=== PATIENT | male | born 1940 | race Caucasian/White ===

== ENCOUNTER → 2017-12-24 12:43 | Outpatient (REF) | payer MEDICARE, SELFPAY ==
[2017-12-25 10:54] LABS: Campylobacter PCR SEE COMMENTS; Salmonella PCR SEE COMMENTS; Shiga Toxin PCR SEE COMMENTS; Shigella/Enteroinvasive Ecoli SEE COMMENTS
== END ==
LOC: NCHCN 12:43
PROVIDERS: PCP Internal Medicine; Visit Provider Internal Medicine
DX: R19.7 Diarrhea, unspecified (principal)
CPT/HCPCS: 87329; 87505; 87177; 87324

== ENCOUNTER 2018-04-30 10:18 | Outpatient (REF) | payer MEDICARE, SELFPAY ==
[2018-04-30 12:59] LABS: Ferritin 133 ng/mL (8-388); Glucose 104 mg/dL (70-100)
== END 2018-04-30 10:38 ==
LOC: NCHCN 10:18
PROVIDERS: PCP Internal Medicine; Visit Provider Internal Medicine
DX: G25.81 Restless legs syndrome (principal); E66.3 Overweight
CPT/HCPCS: 82947; 82728

== ENCOUNTER 2018-08-09 17:47 | Emergency (ER) | payer MEDICARE, SELFPAY ==
[2018-08-09 17:54] VITALS: BP 147/82; PULSE 59; RESP 20; TEMP 36.8; O2SAT 94
--- NOTE | 2018-08-09 18:17 | DI.CT_ITS ---
SYMPTOM/DIAGNOSIS: LT FRONTAL/FOREHEAD LACERATION, ON ELIQUIS CERVICAL SPINE CT: 08/09/[address] examination of the cervical spine was performed. There is a 7 mm in diameter noncalcified left apical lung nodule, no previous chest CT available for comparison. Chest CT recommended for further evaluation. Aortic arch measures about 37 mm in greatest diameter. Thoracic aorta may be evaluated at the time of chest CT as well. No cervical mass or adenopathy seen. Tracheolaryngeal structures appear intact. Marked degenerative changes of the cervical spine noted. No acute fracture or dislocation. CONCLUSION: No acute injury seen. Incidental left lung nodule and ectasia of thoracic aortic arch noted. Chest CT recommended for further evaluation of lung nodule. CRANIAL CT: 08/09/[address] was performed. There is moderate generalized cerebral atrophy. There is no evidence of acute intracranial hemorrhage, mass effect or midline shift. The orbital and temporal bone structures appear intact. The visualized paranasal sinuses and mastoid air cells are clear. CONCLUSION: No evidence of acute intracranial injury
--- NOTE | 2018-08-09 18:45 | ED.GENADUL_ITS ---
Discharge Plan Disposition Patient Disposition: HOME Condition: Stable Discharge Details Chief Complaint: Laceration Clinical Impression: Forehead laceration, Head injury, Chronic anticoagulation Primary Care Provider: Taurus Maza ED Provider: Ronit Edwards Home Meds and New Rx's Prescriptions: Continued atorvastatin 40 MG tablet 40 mg PO DAILY RF: 0 metoprolol succinate 50 MG tablet extended release 24 hr 50 mg PO DAILY RF: 0 ondansetron [Zofran ODT] 4 MG tablet,disintegrating 4 mg PO PRN RF: 0 meclizine 25 MG tablet,chewable 25 mg PO ONCE RF: 0 Eliquis 5 mg Tablet 5 mg PO BID RF: 0 Discharge Instructions Instructions: Laceration (ED), Head Injury (ED), Skin Adhesive Care (ED) Additional Instructions: Do not soak or irrigate wound. Do not cover wound with tape or Band-Aid. Let the glue fall off naturally. Follow-up with your primary care doctor in 2 days for reevaluation. Return immediately to the emergency department with any worsening or new concerning symptoms. Discharge Data Discharge Date/Time-TO BE ENTERED AT DEPARTURE: 08/09/18 20:17 Discharge Physician: Ronit Edwards Medical Decision Making 77-year-old male who presents to the ED for evaluation after trip and fall and striking his head on the corner of the window molding this afternoon. Denies LOC or vomiting. Admits to now mild headache and stiffness of the neck but denies any upper or lower extremity weakness. Tetanus 2014. There is a 2 cm flap laceration noted to the left forehead/frontal region. This is well approximated and without active bleeding. He has no midline C-spine tenderness per patient is on Eliquis for a history of atrial fibrillation. Patient appears nontoxic and comfortable. Will irrigate wound and due to anticoagulation, obtain a CT head and C-spine. 1930 --CT reviewed and negative. Wound irrigated and closed with Dermabond. Pt instructed on wound care with glue. It was discussed that as pt is on eliquis, he is instructed to return immediately with any worsening symptoms of headache, neck pain, persistent vomiting, dizziness or blurry vision. He is instructed to f/u with his pcp for re-evaluation in the next week. Medical Records Medical records reviewed: Yes I reviewed the patient's medical records. Imaging Data Radiologic Study: Radiologist's impression: CT Head Without Contrast EXAM DATE/TIME: 08/09/2018 6:18 PM CLINICAL HISTORY: 77 years old, male; Injury or trauma; Fall; Initial encounter; Laceration; Without residual foreign body; Forehead; Blunt trauma TECHNIQUE: Imaging protocol: Axial computed tomography images of the head/brain without contrast. Coronal and sagittal reformatted images were created and reviewed. COMPARISON: MRI - BRAIN WO CONTRAST 05/24/2016 2:58 PM FINDINGS: Brain: There is brain parenchymal atrophy. Ventricles: Normal. No ventriculomegaly. Bones/joints: Unremarkable. No acute fracture. Sinuses: Visualized sinuses are unremarkable. No acute sinusitis. Mastoid air cells: Visualized mastoid air cells are unremarkable. No mastoid effusion. Soft tissues: Unremarkable. IMPRESSION: No intracranial hemorrhage or skull fracture. CT Cervical Spine Without Contrast EXAM DATE/TIME: 08/09/2018 6:18 PM CLINICAL HISTORY: 77 years old, male; Injury or trauma; Fall; Initial encounter; Laceration; Without residual foreign body; Forehead; Blunt trauma TECHNIQUE: Imaging protocol: Axial computed tomography images of the cervical spine without intravenous contrast. Coronal and sagittal reformatted images were created and reviewed. COMPARISON: MRI - BRAIN WO CONTRAST 05/24/2016 2:58 PM FINDINGS: Vertebrae: Grade 2 anterolisthesis of C3 on C4. Reversal of cervical lordosis. Diffuse facet arthrosis. Degenerative changes and atlantoaxial joint. No acute compression fracture. Discs/Spinal canal/Neural foramina: Diffuse degenerative disc disease, most prominent at C4-C7 levels. Disc osteophyte complexes at C4-5, C5-6, C6-7 with bilateral neural foraminal stenosis at these levels. Mild spinal canal stenosis at C4-5. Soft tissues: Unremarkable. Lungs: Lung apices are normal. IMPRESSION: Degenerative changes. No acute finding. HPI General Mode of arrival: ambulatory . Date/Time Provider Initiated Documentation: 08/09/18 18:03 . Limitations to Documentation: no limitations . Information obtained by: patient . HPI Narrative: Pt is a 77yo M who presents to the ED w/ a c/o head injury at home [employer]. Pt states he was wearing bulky boots while walking at home when he tripped and hit his forehead on the corner of the window molding sustaining a laceration to the top of his head. He denies LOC, vomiting, arm or leg weakness or pain. He denied an initial headache but now admits to a mild diffuse headache. Pt also denied initial neck pain but now admits to mild b/l neck stiffness. Unsure of his tetanus status. Related Data Home Medications Medication Instructions Recorded Confirmed atorvastatin 40 mg PO DAILY tab-cap 08/08/16 08/09/18 meclizine 25 mg PO ONCE tab-cap 08/08/16 08/09/18 metoprolol succinate 50 mg PO DAILY tab-cap 08/08/16 08/09/18 ondansetron [Zofran ODT] 4 mg PO PRN tab-cap 08/08/16 08/09/18 Eliquis 5 mg PO BID 08/09/18 08/09/18 Allergies Allergy/AdvReac Type Severity Reaction Status Date / Time No Known Allergies Allergy Unverified 08/09/18 18:00 General Stated Complaint: Laceration GRACIELA: 3 Review of Systems Review of Systems All systems reviewed & are unremarkable except as noted in HPI and below Constitutional Reports as per HPI, Denies chills and Denies fever(s) Eyes Denies blurry vision ENT Denies dizziness, Denies sore throat and Denies throat swelling Cardiovascular Denies chest pain and Denies dyspnea Respiratory Denies cough and Denies dyspnea Gastrointestinal Denies abdominal pain, Denies diarrhea and Denies vomiting Genitourinary Denies hematuria and Denies dysuria Musculoskeletal Denies back pain and Denies numbness Integumentary/Breasts Denies lesions and Denies rash Neurologic Denies dizziness, Denies focal weakness and Denies numbness Allergic/Immunologic Denies throat swelling PFSH Medical History Atrial fibrillation (Chronic) GERD (gastroesophageal reflux disease) (Chronic) Myocardial infarct (Chronic) Obstructive sleep apnea (Chronic) Surgical History History of repair of ACL (Acute) History of tonsillectomy (Chronic) Hx of cardiac catheterization (Chronic) Hx of hernia repair (Chronic) Social History Smoking/Tobacco Use Status: Never Alcohol Intake: never Drug use: Never Substance use type: does not use Do you feel safe at home: Yes Do you feel safe in your relationship?: Yes Exam Const General: cooperative and healthy appearing Orientation: alert and awake [facility] Head images: 1. 2cm c shaped flap laceration. No active bleeding. 2. 2cm superficial linear laceration/skin avulsion extending from flap laceration. Ears: hearing grossly normal bilaterally, external ears normal and TM's normal bilaterally General nose exam: external nose normal Face and sinus: normal facial exam Mouth: oral mucosae normal Teeth and gingiva: dentition normal Throat: posterior oropharynx normal Eyes General: appearance normal, both eyes and all related structures Eyelids: eyelids normal Pupils: PERRL EOM: EOM intact bilaterally Neck Neck: normal visual inspection Lymphatic: no lymphadenopathy noted Chest Chest: normal inspection of the chest Resp Effort & Inspection: normal respiratory effort and able to speak in complete sentences Auscultation: clear to auscultation bilaterally Cardio Rate: regular rate Rhythm: regular rhythm GI Inspection: normal to inspection Back/Spine/Pelvis Cervical Spine: No cervical muscular tenderness and No cervical spinal tenderness Skin General skin exam: no rashes or lesions noted Neuro General: alert, awake, oriented x3, gait normal, moves all extremities, no meningeal signs and no focal motor deficits Cranial Nerves: CN's II-XI intact bilaterally Cognition: normal cognition Speech: speech normal Gait: normal gait Motor: muscle tone normal throughout and strength 5/5 throughout Sensory Exam: no sensory deficits noted Extrem General: normal to inspection, full ROM and normal capillary refill Psych Appearance: grossly normal Mental Status: mental status grossly normal Speech and Movement: speech and movement normal Affect: normal affect Thought Process: normal Course Vital Signs Temperature 98.2 F 08/09/18 17:54 Pulse 59 L 08/09/18 17:54 Respiratory Rate 20 08/09/18 17:54 Blood Pressure 147/82 H 08/09/18 17:54 Pulse Oximetry 94 L 08/09/18 17:54 Temperature 98.2 F 08/09/18 17:54 Temperature Source Temporal Artery Scan 08/09/18 17:54 Pulse 59 L 08/09/18 17:54 Respiratory Rate 20 08/09/18 17:54 Respiratory Effort Non-Labored 08/09/18 17:54 Blood Pressure 147/82 H 08/09/18 17:54 Blood Pressure Position Sitting 08/09/18 17:54 Pulse Oximetry 94 L 08/09/18 17:54 Oxygen Delivery Method Room Air 08/09/18 17:54 Oxygen Flow Rate 0 08/09/18 17:54 Pain Level 4 08/09/18 17:54
--- NOTE | 2018-08-09 19:34 | DI.VRAD_ITS ---
EXAM: CT Head Without Contrast EXAM DATE/TIME: 08/09/2018 6:18 PM CLINICAL HISTORY: 77 years old, male; Injury or trauma; Fall; Initial encounter; Laceration; Without residual foreign body; Forehead; Blunt trauma TECHNIQUE: Imaging protocol: Axial computed tomography images of the head/brain without contrast. Coronal and sagittal reformatted images were created and reviewed. COMPARISON: MRI - BRAIN WO CONTRAST 05/24/2016 2:58 PM FINDINGS: Brain: There is brain parenchymal atrophy. Ventricles: Normal. No ventriculomegaly. Bones/joints: Unremarkable. No acute fracture. Sinuses: Visualized sinuses are unremarkable. No acute sinusitis. Mastoid air cells: Visualized mastoid air cells are unremarkable. No mastoid effusion. Soft tissues: Unremarkable. IMPRESSION: No intracranial hemorrhage or skull fracture. EXAM: CT Cervical Spine Without Contrast EXAM DATE/TIME: 08/09/2018 6:18 PM CLINICAL HISTORY: 77 years old, male; Injury or trauma; Fall; Initial encounter; Laceration; Without residual foreign body; Forehead; Blunt trauma TECHNIQUE: Imaging protocol: Axial computed tomography images of the cervical spine without intravenous contrast. Coronal and sagittal reformatted images were created and reviewed. COMPARISON: MRI - BRAIN WO CONTRAST 05/24/2016 2:58 PM FINDINGS: Vertebrae: Grade 2 anterolisthesis of C3 on C4. Reversal of cervical lordosis. Diffuse facet arthrosis. Degenerative changes and atlantoaxial joint. No acute compression fracture. Discs/Spinal canal/Neural foramina: Diffuse degenerative disc disease, most prominent at C4-C7 levels. Disc osteophyte complexes at C4-5, C5-6, C6-7 with bilateral neural foraminal stenosis at these levels. Mild spinal canal stenosis at C4-5. Soft tissues: Unremarkable. Lungs: Lung apices are normal. IMPRESSION: Degenerative changes. No acute finding. Dictated and Authenticated by: Bernadette Miller MD. Ordering:ELISABETH Cottrell MD
[2018-08-09 20:16] VITALS: BP 141/81; PULSE 62; RESP 20; TEMP 36.8; O2SAT 95
== END 2018-08-09 20:17 | disposition home or self-care (01) ==
PROVIDERS: Emergency Provider Physician Assistant; PCP Internal Medicine
DX: S01.01XA Laceration without foreign body of scalp, initial encounter (principal); W01.190A Fall on same level from slipping, tripping and stumbling with subsequent striking against furniture, initial encounter; Z79.01 Long term (current) use of anticoagulants
CPT/HCPCS: 12002; 99284; 70450; 72125; L0172

== ENCOUNTER 2018-10-27 10:53 | Outpatient (REF) | payer MEDICARE, SELFPAY ==
[2018-10-27 12:43] LABS: Anion Gap 11.8 mmol/L (3-11); BUN 23 mg/dL (7-18); CO2 23.2 mmol/L (21.0-32.0); CREATININE 0.94 mg/dL (0.70-1.30); Calcium 9.1 mg/dL (8.5-10.1); Chloride 107 mmol/L (98-107); Glucose 98 mg/dL (70-100); Potassium 4.3 mmol/L (3.5-5.1); Sodium 142 mmol/L (136-145)
== END 2018-10-27 11:13 ==
LOC: NCHCN 10:53
PROVIDERS: PCP Internal Medicine; Visit Provider Internal Medicine
DX: I48.0 Paroxysmal atrial fibrillation (principal); I25.10 Atherosclerotic heart disease of native coronary artery without angina pectoris; R39.9 Unspecified symptoms and signs involving the genitourinary system; R91.8 Other nonspecific abnormal finding of lung field; G47.33 Obstructive sleep apnea (adult) (pediatric); M25.562 Pain in left knee
CPT/HCPCS: 80048

== ENCOUNTER 2019-01-07 12:35 | Outpatient (CLI) | payer MEDICARE, SELFPAY ==
--- NOTE | 2019-01-07 12:33 | DI.RAD_ITS ---
SYMPTOM/DIAGNOSIS: LT KNEE PAIN, H/O ACL RECONSTRUCTIONS LEFT KNEE: Three views were obtained. There is marked narrowing of the medial tibiofemoral cartilaginous joint space. There is some flattening of the medial tibial articular surface. Very prominent hypertrophic marginal osteophytes are noted involving all the joints of the knee. There are small, probable loose joint bodies projected posteriorly overlying the lateral tibiofemoral joint. 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
== END 2019-01-07 12:55 ==
PROVIDERS: PCP Internal Medicine; Referring Provider Internal Medicine; Visit Provider Student in an Organized Health Care Education/Training Program
DX: M25.562 Pain in left knee (principal); M17.32 Unilateral post-traumatic osteoarthritis, left knee; Z98.890 Other specified postprocedural states; M23.42 Loose body in knee, left knee
CPT/HCPCS: 20610; 73562; 99203; 99214; J1040

== ENCOUNTER 2019-05-04 09:36 | Outpatient (REF) | payer MEDICARE, SELFPAY ==
[2019-05-04 12:54] LABS: CREATININE 0.95 mg/dL (0.70-1.30); Glucose 105 mg/dL (74-106)
[2019-05-05 13:08] LABS: PSA, Screening 0.7 ng/mL (0.0-6.5)
== END 2019-05-04 09:56 ==
LOC: NCHCN 09:36
PROVIDERS: PCP Internal Medicine; Visit Provider Internal Medicine
DX: I48.0 Paroxysmal atrial fibrillation (principal); I25.10 Atherosclerotic heart disease of native coronary artery without angina pectoris; R73.09 Other abnormal glucose; R39.9 Unspecified symptoms and signs involving the genitourinary system; Z12.5 Encounter for screening for malignant neoplasm of prostate
CPT/HCPCS: 82947; 84153; 82565; 83036

== ENCOUNTER 2019-05-05 02:14 | Outpatient (CLI) | payer MEDICARE, SELFPAY ==
[2019-05-05] MEDS: Omnipaque 350 MG/ML 100 ML BTL 70 ML IJ (14:51)
--- NOTE | 2019-05-05 14:53 | DI.CT_ITS ---
EXAM: CT CHEST W CLINICAL HISTORY: LUNG NODULE, R91.8 TECHNIQUE: Post IV contrast. COMPARISON: CT HEAD CERVICAL SPINE WO from 08/09/2018 FINDINGS: There has been no change in size or appearance of the nodule at the medial left lung apex, measuring 7 millimeters in diameter. No additional nodules are identified. There is respiratory motion and mi ld atelectasis or scarring at the lung bases. No infiltrates, pleural or pericardial effusions are s een. There is no adenopathy. The aorta is tortuous. There is mild coronary artery calcification. Th ere is mild left atrial enlargement. Liver, spleen, gallbladder, pancreas and adrenals appear normal . There are bilateral renal cysts. A nonobstructing stone is seen in the upper pole of the right ki dney. Degenerative changes are seen in the spine. IMPRESSION: Stable 7 millimeter nodule at the left lung apex. Further follow-up could be considered in 6 months.
== END 2019-05-05 02:34 ==
PROVIDERS: PCP Internal Medicine; Visit Provider Internal Medicine
DX: R91.8 Other nonspecific abnormal finding of lung field (principal); J98.4 Other disorders of lung
CPT/HCPCS: 71260; J3490

== ENCOUNTER 2019-09-01 09:59 | Outpatient (REF) | payer MEDICARE, SELFPAY ==
[2019-09-01 21:14] LABS: Calculated LDL 68 mg/dL (<100); Cholesterol 133 mg/dL (<200); Glucose 88 mg/dL (74-106); HDL Cholesterol 57 mg/dL (40-60); Triglyceride 43 mg/dL (<150)
[2019-09-01 21:38] LABS: Hemoglobin A1C 5.8 % (3.8-5.6)
== END 2019-09-01 10:19 ==
LOC: NCHCN 09:59
PROVIDERS: PCP Internal Medicine; Visit Provider Internal Medicine
DX: R73.03 Prediabetes (principal); E66.3 Overweight
CPT/HCPCS: 80061; 82947; 83036

== ENCOUNTER 2019-09-28 18:54 | Emergency (ER) | payer MEDICARE, SELFPAY ==
[2019-09-28] VITALS (34 sets, daily range): BP systolic 104–132; BP diastolic 60–79; PULSE 50–61; RESP 10–23; TEMP 36.7–36.8; O2SAT 93–98
--- NOTE | 2019-09-28 19:02 | W.ED.GENAD ---
Discharge Plan Disposition Patient Disposition: HOME Condition: Stable Discharge Details Chief Complaint: Chest Pain Clinical Impression: Fatigue Primary Care Provider: Taurus Maza ED Provider: Jonatan Mena Home Meds and New Rx's Prescriptions: Continued atorvastatin 40 MG tablet 40 mg PO DAILY RF: 0 metoprolol succinate 50 MG tablet extended release 24 hr 50 mg PO DAILY RF: 0 ondansetron [Zofran ODT] 4 MG tablet,disintegrating 4 mg PO PRN RF: 0 meclizine 25 MG tablet,chewable 25 mg PO ONCE RF: 0 Eliquis 5 mg Tablet 5 mg PO BID RF: 0 aspirin 81 mg Tablet,Chewable 81 mg PO HS RF: 0 Discharge Instructions Instructions: Fatigue (ED) Additional Instructions: At this time your work-up does not reveal any emergent process. Please watch for new or worsening symptoms and return immediately to the ER. I do recommend that you reach out to your primary care provider tomorrow for prompt outpatient reevaluation. You are being set up for an outpatient stress test, they should be in contact with you tomorrow to set up a time and date. Discharge Data Discharge Date/Time-TO BE ENTERED AT DEPARTURE: 09/28/19 23:10 Medical Decision Making <ANTONINO Vallejo - Last Filed: 09/29/19 12:11> Patient is a pleasant 70-year-old gentleman presents today with chief complaint of fatigue. He reports this is recently diagnosed with an angina equivalent. He is concerned that he may be having an [place]. Patient reports that he was quite busy yesterday, spent majority of the day outside mowing and working on his horses. He reports that yesterday he was feeling at his baseline. He was not endorsing any chest pain. States that he has chronic exertional shortness of breath but this is unchanged recently. 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 He states that his symptom at that time was heartburn. He denies any symptoms like this recently. States that he awoke around 5:00 this morning and since that time is been having fatigue. He does report that intermittently he can have lightheadedness. He states that he did have this this morning when he stood up. Has not had any since then. Denies any neck pain, back pain, jaw pain, arm pain. No nausea or vomiting. He has not had any palpitations. Patient does have history of atrial fibrillation and has been taking his Eliquis as prescribed. On exam, the patient appears to be resting comfortably. He appears nontoxic. Patient's slightly bradycardic with a heart rate of 59, patient is on metoprolol and did take this today. Normal cardiac exam. Lungs are clear. Normal abdominal exam. No lower extremity edema or calf tenderness noted. EKG was reviewed by Dr. Moran. Patient's been sinus bradycardia with a rate of 59. He does have a first-degree AV block which is unchanged from previous ECG. RSR prime is again noted but again remains unchanged from previous. No acute ischemic changes. Initial labs reviewed. Normal CBC. CMP is significant for a BUN of 38, this is elevated compared to the patient's baseline. His troponin is less than 0.05. Patient did appear slightly dehydrated on exam. With his story of being quite busy outside yesterday and not having any symptoms at that time, his story is more concerning and consistent for dehydration rather than acute coronary syndrome throat. With the patient's history, I do feel that repeat troponin would be appropriate, 3-hour will be obtained. I did advise that if this is negative an outpatient stress test would be appropriate. We will hydrate the patient continue to monitor. UA shows a specific gravity over 1.03. Enema shift, care was transitioned to Mark Mena PA-C with repeat ECG and troponin pending. At this point, patient's history is most consistent for dehydration and overactivity yesterday. However, as the patient does have exertional dyspnea and history of ACS, I do feel that outpatient stress test would be appropriate if repeat laboratory evaluation is negative. <ANTONINO Quiroz - Last Filed: 09/28/19 22:58> I assumed care of this 78-year-old gentleman pending repeat troponin and EKG. He was concerned that he was experiencing angina, described as generalized weakness and fatigue. He does have a history of atrial fibrillation, [place], cardiac catheterization. Patient never had any chest pain whatsoever. Extensive work-up has already been initiated and thus far has been negative. Assuming negative troponin and EKG at the 3-hour corina, he has already been set up for an outpatient stress test and they will be contacting him tomorrow. Patient is resting in room 4 comfortably. He reports that he is currently asymptomatic. He appears well, nontoxic. Head normocephalic, moist mucous membranes. Heart bradycardia, rate of 56. Lungs clear to auscultation. Abdomen is soft, nontender. Lower extremities without pedal edema. Apparently patient very active yesterday and through his exertion felt well, was asymptomatic. BUN was elevated, does bring up the question of dehydration-depletion Repeat troponin is less than 0.05. Repeat EKG performed 2208, sinus bradycardia, first-degree AV block. Ventricular rate of 51. No STEMI. Reviewed and interpreted Dr. Story. Discussed work-up with patient. Discussed plan for outpatient stress test. Patient remains asymptomatic and is comfortable discharge. He was encouraged to return to the ER for new or evolving symptoms. He will also reach out to his primary care provider for prompt outpatient reevaluation. Medical Records Medical records reviewed: Yes I reviewed the patient's medical records. HPI <ANTONINO Vallejo - Last Filed: 09/29/19 12:11> General Mode of arrival: ambulatory. Date/Time Provider Initiated Documentation: 09/28/19 18:57. Limitations to Documentation: no limitations. Information obtained by: patient and RN notes reviewed. HPI Narrative: Patient is a pleasant 78-year-old gentleman past medical history significant for end STEMI, atrial fibrillation, GERD, CK. Patient is currently anticoagulated, has been taking his Eliquis as prescribed. Patient underwent a left heart catheterization 2015. He reports that no stents were placed they are having difficulty gaining access to the afflicted vessel. However, he described collateral vessel formation that was noted at that time. He reports that yesterday he had been working outside for majority of the day. States that he was feeling quite well. He reports I do not feel like I did 10 years ago but denies any chest pain, shortness of breath, neck or back pain during that time. Patient reports he was recently diagnosed with anginal equivalent of fatigue. Reports that throughout the course today he has been much more fatigued than his typical which is what had him concerned for potential recurrence of cardiac disease. 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 He was last evaluated last summer. Related Data Home Medications Medication Instructions Recorded Confirmed atorvastatin 40 mg PO DAILY tab-cap 08/08/16 09/28/19 meclizine 25 mg PO ONCE tab-cap 08/08/16 09/28/19 metoprolol succinate 50 mg PO DAILY tab-cap 08/08/16 09/28/19 ondansetron [Zofran ODT] 4 mg PO PRN tab-cap 08/08/16 09/28/19 Eliquis 5 mg PO BID 08/09/18 09/28/19 aspirin 81 mg PO HS 09/28/19 09/28/19 Allergies Allergy/AdvReac Type Severity Reaction Status Date / Time No Known Allergies Allergy Unverified 09/28/19 19:11 General GRACIELA: 3 Review of Systems <ANTONINO Vallejo - Last Filed: 09/29/19 12:11> Constitutional Constitutional: Reports as per HPI, Denies chills, Reports fatigue, Denies fever(s), Denies headache(s), Denies lethargy and Denies poor appetite Eyes Eyes: Denies change in vision ENT Ears, Nose, Mouth, and Throat: Denies dizziness and Denies headache(s) Cardiovascular Cardiovascular: Reports as per HPI, Denies chest pain at rest, Denies chest pain with activity, Denies diaphoresis, Denies syncope, Denies rapid heart rate, Denies pedal edema, Reports irregular heart rhythm (History of A. fib), Denies leg edema, Reports lightheadedness (Occasionally experiences lightheadedness with exertion), Denies radiating jaw, neck or arm pain, Denies palpitations, Denies dyspnea and Reports dyspnea on exertion (Chronic and unchanged) Respiratory Respiratory: Reports as per HPI, Denies chest congestion, Denies cough, Denies pain on inspiration, Denies pain with cough, Denies dyspnea, Reports dyspnea on exertion (Chronic and unchanged) and Denies wheezing Gastrointestinal Gastrointestinal: Reports as per HPI, Denies abdominal pain, Denies diarrhea, Denies nausea and Denies vomiting Genitourinary Genitourinary: Denies system reviewed and no additional complaints, except as documented (denies change in urinary habits) Musculoskeletal Musculoskeletal: Reports as per HPI and Denies back pain Integumentary/Breasts Skin/Breast: Reports as per HPI and Denies rash Neurologic Neurologic: Reports as per HPI, Denies dizziness, Denies syncope and Denies headache(s) Endocrine Endocrine: Reports fatigue and Denies palpitations Allergic/Immunologic Allergic/Immunologic: Denies wheezing PFSH <ANTONINO Vallejo - Last Filed: 09/29/19 12:11> Medical History Atrial fibrillation (Chronic) GERD (gastroesophageal reflux disease) (Chronic) Myocardial infarct (Chronic) Obstructive sleep apnea (Chronic) Surgical History History of repair of ACL (Acute) History of tonsillectomy (Chronic) Hx of cardiac catheterization (Chronic) Hx of hernia repair (Chronic) Social History Smoking/Tobacco Use Status: Never Alcohol Intake: never Drug use: Never Substance use type: does not use Do you feel safe at home: Yes Do you feel safe in your relationship?: Yes Exam <ANTONINO Vallejo - Last Filed: 09/29/19 12:11> Const General: cooperative, healthy appearing, comfortable, no acute distress and well developed Nutritional Appearance: average body habitus and well nourished Orientation: alert, awake and oriented x3 HENMT Head: normal to inspection Ears: hearing grossly normal bilaterally Mouth: moist mucous membranes Chest Chest: normal inspection of the chest, normal palpation of entire chest wall and no crepitus Resp Effort & Inspection: normal respiratory effort, able to speak in complete sentences and no respiratory distress Auscultation: clear to auscultation bilaterally, no rales, no rhonchi and no wheezes Cardio Rate: regular rate Rhythm: regular rhythm Heart Sounds: S1 normal and S2 normal GI Inspection: normal to inspection, no edema and non-distended Palpation: soft, no hepatosplenomegaly, not firm, no guarding, not rigid and nontender Auscultation: normal bowel sounds Back/Spine/Pelvis Back: no CVA tenderness Thoracic/Lumbar Spine: thoracic and lumbar spine normal to inspection Skin General skin exam: no rashes or lesions noted Trauma: no lacerations or abrasions Neuro General: patient alert, patient awake and patient oriented x3 Cognition: normal cognition Speech: speech normal Gait: normal gait Extrem General: normal to inspection, capillary refill normal, no pedal edema, no calf tenderness and normal gait Psych Appearance: grossly normal and well kempt Mental Status: mental status grossly normal Speech and Movement: speech and movement normal
[2019-09-28 19:24] LABS: Abs Immature Grans 0.01 k/cumm (0.0-0.09); Absolute Basophil Count 0.01 k/cumm (0.0-0.2); Absolute Eosinophil Count 0.31 k/cumm (0.0-0.7); Absolute Lymphocyte Count 1.51 k/cumm (1.2-3.4); Absolute Neutrophil Count 3.13 k/cumm (1.2-6.7); Basophils % 0.2; Eosinophils % 5.6; HGB 15.3 g/dL (13.5-17.5); Immature Grans % 0.2 %; Lymphocytes % 27.1; Mean Corp. HGB Concentration 34.8 g/dL (32.0-36.0); Mean Corpuscular Hemoglobin 30.5 pg (27.0-33.0); Mean Corpuscular Volume 87.6 fL (80-95); Mean Platelet Volume 9.2 fL (8.0-11.0); Monocytes % 10.8; Neutrophils % 56.1; Platelet Count 202 x1000/uL (130-400); RBC 5.02 m/cumm (4.50-6.00); RBC Distribution Width 14.1 % (11.8-14.1); White Blood Cell Count 5.57 k/cumm (4.4-10.8)
[2019-09-28 19:35] LABS: INR 1.1 (0.9-1.1); PTT Activated 30.2 sec (21.0-31.4); Prothrombin Time 11.5 sec (9.3-11.0)
[2019-09-28 19:37] LABS: ALT 37 U/L (16-63); AST 26 U/L (15-37); Albumin 3.7 g/dL (3.4-5.0); Alkaline Phosphatase 65 U/L (46-116); Anion Gap 7.9 mmol/L (3-11); BUN 38 mg/dL (7-18); Bilirubin, Total 0.8 mg/dL (0.2-1.0); CO2 24.1 mmol/L (21.0-32.0); CREATININE 0.96 mg/dL (0.70-1.30); Chloride 105 mmol/L (98-107); Glucose 104 mg/dL (74-106); Magnesium 2.2 mg/dL (1.8-2.4); Potassium 4.6 mmol/L (3.5-5.1); Sodium 137 mmol/L (136-145); Total Protein 6.9 g/dL (6.4-8.2); Troponin I < 0.05 ng/mL (<0.06)
--- NOTE | 2019-09-28 19:48 | DI.RAD_ITS ---
EXAM: XR CHEST 2V PA LATERAL CLINICAL HISTORY: CP TECHNIQUE: COMPARISON: CR CHEST 2 VIEWS PA,LAT from 07/21/2015 FINDINGS: The heart is at the upper limits of normal in size. Lungs are clear with minimal reticular changes c onsistent with scarring. No pleural effusion seen. Thoracic aorta is tortuous. IMPRESSION: No evidence of acute process.
[2019-09-28] MEDS: Lactated Ringers 1,000 ML 1000 ML IV (20:00)
--- NOTE | 2019-09-28 20:05 | DI.VRAD_ITS ---
PROCEDURE INFORMATION: Exam: XR Chest, 2 Views Exam date and time: 09/28/2019 7:46 PM Age: 78 years old Clinical indication: Chest pain; Type not specified; Patient HX: Cp TECHNIQUE: Imaging protocol: XR of the chest Views: 2 views. COMPARISON: CR CHEST 2 VIEWS PA,LAT 07/21/2015 6:28 PM FINDINGS: Lungs: No consolidation. Faint bibasilar linear opacities likely represent atelectasis. Pleural space: Unremarkable. No pleural effusion. No pneumothorax. Heart/Mediastinum: Unremarkable. No cardiomegaly. Bones/joints: Unremarkable. IMPRESSION: No acute findings. Dictated and Authenticated by: Argenis Pineda MD. Ordering:RODNEY Doyle MD
[2019-09-28 20:27] LABS: Bilirubin Negative (Negative); Blood Negative (Negative); Clarity Clear (Clear); Glucose Negative (Negative); Ketones Negative (Negative); Leukocyte Esterase Negative (Negative); Nitrite Negative (Negative); Specific Gravity >= 1.030 (1.005-1.025); Urobilinogen 0.2 EU/dL (Up TO 0.2); pH 5.5 (5-8)
[2019-09-28 22:35] LABS: Troponin I < 0.05 ng/mL (<0.06)
== END 2019-09-28 23:10 | disposition home or self-care (01) ==
PROVIDERS: Physician Assistant; Emergency Provider Physician Assistant; PCP Internal Medicine
DX: R53.83 Other fatigue (principal); R00.1 Bradycardia, unspecified; E86.0 Dehydration; I20.8 Other forms of angina pectoris; Z79.01 Long term (current) use of anticoagulants; I48.91 Unspecified atrial fibrillation
CPT/HCPCS: 36415; 80053; 93005; 96360; 99285; 71046; 81003; 83735; 84484; 85025; 85610; 85730; 93010

== ENCOUNTER 2019-10-05 01:25 | Outpatient (CLI) | payer MEDICARE, SELFPAY ==
--- NOTE | 2019-10-05 09:00 | ETT_ITS ---
APPROVED REPORT Exam: Exercise Treadmill Patient Location: Out-Patient Room/Bed: Stress Nurse: Renetta Aguilar RN BMI: 26.38 Baseline Rhythm: Sinus Rhythm, first degree AV block. P-mitral. Indications: Angina. Medical History Medical History: Anxiety Cardiac Medications: Atorvastatin. Metoprolol. Eliquis. Aspirin., Allergies: No known drug allergies Cardiac Risk Factors: Hyperlipidemia, FHX of CAD, Pre-diabetic Previous Cardiac Procedures: PCI Pretest Chest Pain Characteristics: Exertional Chest pain Exercise History: Physically active Lung Sounds: Clear to auscultation Heart Sounds: Regular Stress Test Details Test: Exercise stress testing was performed using a Bro protocol. Rest Stress HR Resting HR Supine: 60 bpm Max Heart Rate (APMHR): 142 bpm Resting HR Standin bpm Target HR (85% APMHR): 120 bpm Max HR Achieved: 114 bpm % of APMHR: 80 Recovery HR: 70 bpm HR response to stress: Normal HR response to stress BP Resting BP Supine: 116/78 mmHg Resting BP Standin/80 mmHg Max BP: 152/66 mmHg Recovery BP: 124/74 mmHg BP response to stress: Normal blood pressure response to stress. ECG Resting ECst degree AV block Stress ECG: Sinus Tachycardia ST Change: No significant ST segment changes Arrhythmia: Rare VPC's Recovery ECst degree AV block Recovery ST Change: No significant ST segment changes Recovery Arrhythmia: VPC Clinical Reason for Termination: Fatigue Stress Symptoms: General Fatigue Exercise duration: 10 min01 sec Highest Stage Reached: Stage 4: 4.2 mph at 16% grade. Exercise capacity: 11.82 METs Functional Capacity: Above average capacity Stress ECG Conclusion 1. She exercised for 10 minutes (12 METS) exercise was stopped due to fatigue. Rate-pressure product was 19,000. 2. The patient no symptoms suggestive of ischemia. 3. There is no evidence of ischemia on the ECG portion of the exam. 4. The Ognzalez Score ( 10) estimates an annual cardiovascular mortality of 0% and a five year survival o f 96%. Using the Gonzalez Score there is a low probability of any angiographic coronary disease. Stress Test Summary STAGE Time (mins) Speed (mph) Grade (%) HR BP SYMPTOMS METS Supine 60 116/78 Standing 63 122/80 1 3 1.7 10 83 130/68 4.6 2 6 2.5 12 114 142/62 7 1 min recovery 92 152/66 3 min recovery 68 144/68 6 min recovery 70 124/70
== END 2019-10-05 01:45 ==
PROVIDERS: PCP Internal Medicine; Visit Provider Physician Assistant
DX: I20.8 Other forms of angina pectoris (principal); E78.5 Hyperlipidemia, unspecified; R73.03 Prediabetes; F41.8 Other specified anxiety disorders; Z82.49 Family history of ischemic heart disease and other diseases of the circulatory system
CPT/HCPCS: 93016; 93018; 93017

== ENCOUNTER 2019-10-19 10:27 | Outpatient (REF) | payer MEDICARE, SELFPAY ==
[2019-10-19 20:20] LABS: Glucose 97 mg/dL (74-106)
[2019-10-19 20:36] LABS: Hemoglobin A1C 5.8 % (3.8-5.6)
== END 2019-10-19 10:47 ==
LOC: NCHCN 10:27
PROVIDERS: PCP Internal Medicine; Visit Provider Internal Medicine
DX: R73.03 Prediabetes (principal); R42 Dizziness and giddiness
CPT/HCPCS: 82947; 83036

== ENCOUNTER 2019-11-18 06:05 | Emergency (ER) | payer MEDICARE, SELFPAY ==
[2019-11-18 06:08] VITALS: BP 135/79; PULSE 60; RESP 16; TEMP 36.1; O2SAT 97
--- NOTE | 2019-11-18 06:13 | ED.GENADUL_ITS ---
Discharge Plan Disposition Patient Disposition: HOME Condition: Good Discharge Details Chief Complaint: Nk/Back Pain Clinical Impression: Kidney stone Primary Care Provider: Taurus Maza ED Provider: Julio Rose Home Meds and New Rx's Prescriptions: New tamsulosin [Flomax] 0.4 mg capsule 0.4 mg PO DAILY Qty: 7 RF: 0 Continued atorvastatin 40 MG tablet 40 mg PO DAILY RF: 0 metoprolol succinate 50 MG tablet extended release 24 hr 50 mg PO DAILY RF: 0 ondansetron [Zofran ODT] 4 MG tablet,disintegrating 4 mg PO PRN RF: 0 meclizine 25 MG tablet,chewable 25 mg PO PRN PRNRF: 0 Eliquis 5 mg Tablet 5 mg PO BID RF: 0 cephalexin 500 mg capsule 500 mg PO TID RF: 0 Discharge Instructions Instructions: Kidney Stones (ED) Additional Instructions: You have a 5 mm kidney stone. This is over senior living through, and should pass soon on its own. Please take 500 mg of Tylenol as needed for pain. Please take the [place] pain pill only as needed for breakthrough pain. Please take the Flomax to help it pass. Please use a strainer to collect her stone after which it can be sent for evaluation by your family doctor or urology. If you notice any worsening of your symptoms, or any new symptoms such as vomiting, diarrhea, fever, chills, shortness of breath, chest pain, numbness, weakness, or fainting , please return immediately to the emergency department for reevaluation. Please follow up with your primary care provider as soon as possible for reassessment and reevaluation. As always, it was a pleasure participating in your medical care today. Referrals: Taurus Maza MD [Primary Care Provider] - Medical Decision Making 78-year-old male with a past medical history of A. fib on Eliquis, presents today for sudden onset right flank pain. Patient states that the pain started suddenly early this morning just prior to coming in. Patient describes it as an achy-like sensation and sharp-like sensation in his right flank that slightly radiates to his genitals. Pain is made worse when urinating. He denies any hematuria. He denies any vomiting or diarrhea but does admit to mild nausea. He has never had a kidney stone before. He denies any tearing or ripping sensation. He denies any chest pain or shortness of breath. He denies any other complaints. Exam demonstrates no significant reproducible abdominal tenderness. No signs of an acute surgical abdomen. No testicular pain or tenderness, no evidence of testicular torsion. Signs and symptoms at this time appear clinically consistent with acute kidney stone. We will get a CT scan to evaluate for potential stone, treat the patient's pain, monitor closely and reassess. On an unrelated note patient is taking Keflex for mild bursitis of his right elbow. At this time this does not look overly infected, no evidence of a septic joint. 7:[address] scan results demonstrate evidence of moderate right sided hydronephrosis and hydroureter in conjunction with a 5 x 5 mm stone located at L4. Patient's initially did not want any narcotic, however eventually he did change his mind and after receiving narcotics is having notable improvement of his symptoms. No real relief with acetaminophen. Patient is not a candidate for Toradol secondary to his Eliquis use. We will give tamsulosin based on the location of the kidney stone. No evidence of infection on his urinalysis, comprehensive metabolic panel is notably benign. Good renal function. Pain controlled, pat ient able to tolerate p.o. No signs of infection. At this time with his pain control I do feel that he can be discharged home. We will give a few pills of [place] to be used as needed for pain control. I have extensively reviewed the treatment plan and discharge instructions with the patient. I have addressed all patient concerns at this time. The patient was made aware of what symptoms to monitor for that would warrant a return to the emergency department. Discussed the plan with the patient, they demonstrate verbal understanding and agreement with our assessment and plan at this time. FINDINGS: Liver: Normal. No mass. Gallbladder and bile ducts: Normal. No calcified stones. No ductal dilation. Pancreas: Normal. No ductal dilation. Spleen: Normal. No splenomegaly. Adrenals: Normal. No mass. Kidneys and ureters: Moderate right-sided hydronephrosis and hydroureter noted to the level of an obstructing mid right ureteral stone measuring 5 x 5 mm located at L4. Stomach and bowel: Unremarkable. No obstruction. No mucosal thickening. Appendix: No evidence of appendicitis. Intraperitoneal space: Unremarkable. No free air. No significant fluid collection. Vasculature: Unremarkable. No abdominal aortic aneurysm. Lymph nodes: Unremarkable. No enlarged lymph nodes. Bladder: The urinary bladder is questionably thickwalled. This may reflect incomplete distention. However correlation with UA is recommended to exclude cystitis. Reproductive: Unremarkable as visualized. Bones/joints: Unremarkable. No acute fracture. Soft tissues: Unremarkable. IMPRESSION: 1. Moderate right-sided hydronephrosis and hydroureter noted to the level of an obstructing mid right ureteral stone measuring 5 x 5 mm located at L4. 2. Equivocal cystitis. Thank you for allowing us to participate in the care of your patient. Dictated and Authenticated by: Hunter Herrera MD 11/18/2019 7:07 AM Eastern Time ([place] & [place]) HPI General Date/Time Provider Initiated Documentation: 11/18/19 06:06 . HPI Narrative: 78-year-old male with a past medical history of A. fib on Eliquis, presents today for sudden onset right flank pain. Patient states that the pain started suddenly early this morning just prior to coming in. Patient describes it as an achy-like sensation and sharp-like sensation in his right flank that slightly radiates to his genitals. Pain is made worse when urinating. He denies any hematuria. He denies any vomiting or diarrhea but does admit to mild nausea. He has never had a kidney stone before. He denies any tearing or ripping sensation. He denies any chest pain or shortness of breath. He denies any other complaints. Related Data Home Medications Medication Instructions Recorded Confirmed atorvastatin 40 mg PO DAILY tab-cap 08/08/16 09/28/19 meclizine 25 mg PO PRN PRN tab-cap 08/08/16 09/28/19 metoprolol succinate 50 mg PO DAILY tab-cap 08/08/16 09/28/19 ondansetron [Zofran ODT] 4 mg PO PRN tab-cap 08/08/16 09/28/19 Eliquis 5 mg PO BID 08/09/18 09/28/19 cephalexin 500 mg PO TID 11/18/19 11/18/19 tamsulosin [Flomax] 0.4 mg PO DAILY #7 cap 11/18/19 Previous Rx's Medication Instructions Recorded tamsulosin [Flomax] 0.4 mg PO DAILY #7 cap 11/18/19 Allergies Allergy/AdvReac Type Severity Reaction Status Date / Time No Known Allergies Allergy Unverified 09/28/19 19:11 General Stated Complaint: Nk/Back Pain GRACIELA: 3 Review of Systems All systems reviewed & are unremarkable except as noted in HPI and below PFSH Medical History Atrial fibrillation (Chronic) GERD (gastroesophageal reflux disease) (Chronic) Myocardial infarct (Chronic) Obstructive sleep apnea (Chronic) Surgical History History of repair of ACL (Acute) History of tonsillectomy (Chronic) Hx of cardiac catheterization (Chronic) Hx of hernia repair (Chronic) Social History Smoking/Tobacco Use Status: Never Alcohol Intake: never Drug use: Never Substance use type: does not use Do you feel safe at home: Yes Do you feel safe in your relationship?: Yes Exam Narrative Exam Narrative: 1.Const: Well-nourished, Well-developed, appearing stated age 2.Eyes: PERRL, no conjunctival injection, and symmetrical lids. 3.ENT: Atraumatic external nose and ears. Moist MM. Neck: Symmetric, trachea midline, No thyromegaly. 4.CVS: +S1/S2, No murmurs or gallops. Peripheral pulses 2+ and equal in all extremities. Brisk capillary refill in all extremities. 5.RESP: Unlabored respiratory effort. Clear to auscultation bilaterally. No wheezes rales or rhonchi 6.GI: Soft, Nontender/Nondistended, No hepatosplenomegaly. No guarding or rebound. No pain on palpation of the abdomen, no worsening of the pain with pe rcussion of the flanks. No genital. On exam, normal cremasteric reflex bilaterally. No signs of testicular torsion. 7.MSK: Normocephalic/Atraumatic, Extremities w/o deformity or ttp No cyanosis or clubbing, Normal movement of all extremities. The patient does have evidence of mild bursitis without any significant redness erythema or signs of septic joint or significant cellulitis. 8.Skin: Warm, Dry. No rashes or lesions. 9.Neuro: umbrella cutter II-XII grossly intact. Sensation grossly intact, no focal neurologic deficits. 10.Psych: (AAO) x3. Appropriate mood and affect Course Vital Signs Vital signs: Vital Signs Temperature 36.1 C L 11/18/19 06:08 Pulse 60 11/18/19 06:08 Respiratory Rate 16 11/18/19 06:08 Blood Pressure 135/79 11/18/19 06:08 Pulse Oximetry 97 11/18/19 06:08 Temperature 36.1 C L 11/18/19 06:08 Temperature Source Skin 11/18/19 06:08 Pulse 60 11/18/19 06:08 Respiratory Rate 16 11/18/19 06:08 Blood Pressure 135/79 11/18/19 06:08 Pulse Oximetry 97 11/18/19 06:08 Oxygen Delivery Method Room Air 11/18/19 06:08 Oxygen Flow Rate 0 11/18/19 06:08 Pain Level 7 11/18/19 06:08
[2019-11-18] MEDS: Normal Saline 500 ML IV (06:22)
[2019-11-18] MEDS: ACETAMINOPHEN 1,000 MG/100 ML BTL 400 MG IVPB (06:23)
[2019-11-18 06:27] LABS: Abs Immature Grans 0.01 k/cumm (0.0-0.09); Absolute Basophil Count 0.01 k/cumm (0.0-0.2); Absolute Eosinophil Count 0.34 k/cumm (0.0-0.7); Absolute Lymphocyte Count 1.23 k/cumm (1.2-3.4); Absolute Monocyte Count 0.45 k/cumm (0.11-0.7); Absolute Neutrophil Count 3.29 k/cumm (1.2-6.7); Basophils % 0.2; Eosinophils % 6.4; HCT 44.9 % (40.0-50.0); HGB 15.4 g/dL (13.5-17.5); Immature Grans % 0.2 %; Lymphocytes % 23.1; Mean Corp. HGB Concentration 34.3 g/dL (32.0-36.0); Mean Corpuscular Hemoglobin 30.3 pg (27.0-33.0); Mean Corpuscular Volume 88.2 fL (80-95); Mean Platelet Volume 8.4 fL (8.0-11.0); Monocytes % 8.4; Neutrophils % 61.7; Platelet Count 234 x1000/uL (130-400); RBC 5.09 m/cumm (4.50-6.00); RBC Distribution Width 13.5 % (11.8-14.1); White Blood Cell Count 5.33 k/cumm (4.4-10.8)
[2019-11-18 06:27] LABS: Bilirubin Negative (Negative); Blood Large (Negative); Clarity Clear (Clear); Glucose Negative (Negative); Ketones Negative (Negative); Leukocyte Esterase Negative (Negative); Nitrite Negative (Negative); Specific Gravity >= 1.030 (1.005-1.025); Urobilinogen 0.2 EU/dL (Up TO 0.2)
[2019-11-18 06:36] LABS: Bacteria Negative HPF (Negative); C & S Indicated? No; Casts Negative LPF (Negative); Crystals Negative HPF (Negative); Epithelial Cells Negative HPF (Negative); Mucus Negative (Negative); RBC 20-50 HPF (0-2); WBC Negative HPF (0-5)
--- NOTE | 2019-11-18 06:43 | DI.CT_ITS ---
EXAM: CT RENAL COLIC WO CLINICAL HISTORY: right flank pain, r/o stone. TECHNIQUE: Imaging Protocol: Axial computed tomography images with coronal and sagittal reformatted images were created and reviewed. COMPARISON: CT PELVIC/LOWER ABD WITH CON(P) from 10/24/[address] CHEST W from 05/05/[address] CHEST W from 05/05/2019 FINDINGS: ABDOMEN: Lung Bases: Normal where visualized. Liver: Normal density. No measurable mass. Gallbladder and biliary tract: No radiodense calculus or biliary ductal dilation. Pancreas: Normal density, no abnormal calcifications or inflammatory process. Spleen: Normal. Kidneys: Normal size, contour and axis.There is a 5 mm stone in the mid right ureter at the L4 level causing moderate right hydronephrosis and hydroureter. Bilateral renal cysts. Adrenal glands: No mass is seen. Lymph nodes: Within normal limits. Abdominal Aorta: Abdominal portion non-dilated. Atherosclerosis. PELVIS: Bladder:Incompletely distended with apparent bladder wall thickening. Cystitis cannot be excluded. Bowel: No obstruction or bowel wall thickening. Appendix is unremarkable. Peritoneal cavity: No ascites, collection or mesenteric inflammatory response Reproductive organs: Enlarged prostate gland. Bones: Multilevel degenerative changes. Compression deformity of L3 which appears old. Soft Tissues: Within normal limits. IMPRESSION: 5 mm stone in the mid right ureter causing moderate hydronephrosis and hydroureter. Equivocal cystitis. RADIATION DOSE DELIVERED: Total DLP DATA REPOSITORY: All CT scans at this facility are submitted to the National Radiology Data Registry (NRDR) Dose Index Registry (DIR) with the [employer] (ACR). RADIATION OPTIMIZATION: All CT scans at this facility use at least one of these dose optimization te chniques: automated exposure control; mA and/or kV adjustment per patient size (includes targeted exa ms where dose is matched to clinical indication); or iterative reconstruction.
[2019-11-18 06:48] LABS: ALT 27 U/L (16-63); AST 26 U/L (15-37); Albumin 3.5 g/dL (3.4-5.0); Alkaline Phosphatase 65 U/L (46-116); Anion Gap 8.8 mmol/L (3-11); BUN 28 mg/dL (7-18); Bilirubin, Total 0.6 mg/dL (0.2-1.0); CO2 25.2 mmol/L (21.0-32.0); CREATININE 1.15 mg/dL (0.70-1.30); Calcium 8.8 mg/dL (8.5-10.1); Chloride 104 mmol/L (98-107); Glucose 148 mg/dL (74-106); Potassium 4.4 mmol/L (3.5-5.1); Sodium 138 mmol/L (136-145); Total Protein 6.9 g/dL (6.4-8.2)
[2019-11-18] MEDS: Ondansetron 4 MG/2 ML VIAL IVP (07:01)
--- NOTE | 2019-11-18 07:07 | DI.VRAD_ITS ---
PROCEDURE INFORMATION: Exam: CT Abdomen And Pelvis Without Contrast Exam date and time: 11/18/2019 6:13 AM Age: 78 years old Clinical indication: Abdominal pain; Patient HX: Right sided flank pain x3 hours TECHNIQUE: Imaging protocol: Computed tomography of the abdomen and pelvis without contrast. Radiation optimization: All CT scans at this facility use at least one of these dose optimization techniques: automated exposure control; mA and/or kV adjustment per patient size (includes targeted exams where dose is matched to clinical indication); or iterative reconstruction. COMPARISON: US AAA SCREENING 08/18/2017 3:11 PM FINDINGS: Liver: Normal. No mass. Gallbladder and bile ducts: Normal. No calcified stones. No ductal dilation. Pancreas: Normal. No ductal dilation. Spleen: Normal. No splenomegaly. Adrenals: Normal. No mass. Kidneys and ureters: Moderate right-sided hydronephrosis and hydroureter noted to the level of an obstructing mid right ureteral stone measuring 5 x 5 mm located at L4. Stomach and bowel: Unremarkable. No obstruction. No mucosal thickening. Appendix: No evidence of appendicitis. Intraperitoneal space: Unremarkable. No free air. No significant fluid collection. Vasculature: Unremarkable. No abdominal aortic aneurysm. Lymph nodes: Unremarkable. No enlarged lymph nodes. Bladder: The urinary bladder is questionably thickwalled. This may reflect incomplete distention. However correlation with UA is recommended to exclude cystitis. Reproductive: Unremarkable as visualized. Bones/joints: Unremarkable. No acute fracture. Soft tissues: Unremarkable. IMPRESSION: 1. Moderate right-sided hydronephrosis and hydroureter noted to the level of an obstructing mid right ureteral stone measuring 5 x 5 mm located at L4. 2. Equivocal cystitis. Dictated and Authenticated by: Hunter Herrera MD. Ordering:ASHLEY Kim MD
[2019-11-18] MEDS: Tamsulosin 0.4 MG CAPCR PO (07:14)
[2019-11-18] MEDS: oxyCODONE 5 MG TAB PO (08:21)
== END 2019-11-18 08:25 | disposition home or self-care (01) ==
PROVIDERS: Emergency Provider Student in an Organized Health Care Education/Training Program; PCP Internal Medicine
DX: N13.2 Hydronephrosis with renal and ureteral calculous obstruction (principal); N13.4 Hydroureter; R11.0 Nausea
CPT/HCPCS: 36415; 80053; 96365; 96375; 99284; 74176; 81003; 81015; 85025; J0131; J2405

== ENCOUNTER 2019-12-01 02:59 | Outpatient (CLI) | payer MEDICARE, SELFPAY ==
--- NOTE | 2019-12-01 08:40 | DI.CT_ITS ---
EXAM: CT RENAL COLIC WO CLINICAL HISTORY: H/O KIDNEY STONES, Z87.442,CONTINUED PAIN TECHNIQUE: COMPARISON: CT PELVIC/LOWER ABD WITH CON(P) from 10/24/[address] RENAL COLIC WO from 11/18/2019 FINDINGS: CT examination of the abdomen pelvis was performed. Contrast administration examination is compared with recent CT of November 17. A previously noted 5 mm mid ureteral stone seen on the prior examination has moved distally and now lies at ureterovesical junction, probably in intramural portion distal ur eter. No other ureteral or renal calcification identified. Multiple bilateral renal cysts. Urinary bladder is nearly empty, urinary bladder wall may be mildly thickened. Liver, spleen, and pancreas are unremarkable. Gallbladder bile ducts are CT normal. Abdominal aorta is of normal diameter. No abdominal or pelvic adenopathy. Small fat containing umbi lical hernia noted. Coronary artery calcification noted. Images obtained through the lung bases are unremarkable. No focal bowel pathology identified. Normal appearance of appendix. IMPRESSION: Previously described 5 millimeter right mid ureteral calculus has migrated distally and now lies at t he ureterovesical junction. There is mild to moderate right hydronephrosis, little if any interval c hange in degree of hydronephrosis from the prior study.
== END 2019-12-01 03:19 ==
PROVIDERS: PCP Internal Medicine; Visit Provider Internal Medicine
DX: N13.2 Hydronephrosis with renal and ureteral calculous obstruction (principal)
CPT/HCPCS: 74176

== ENCOUNTER 2019-12-07 21:26 | Outpatient (REF) | payer MEDICARE, SELFPAY ==
[2019-12-14 15:55] LABS: Source: Kidney
== END 2019-12-07 21:46 ==
LOC: NCHCN 21:26
PROVIDERS: PCP Internal Medicine; Visit Provider Internal Medicine
DX: Z87.442 Personal history of urinary calculi (principal)
CPT/HCPCS: 82365

== ENCOUNTER 2020-07-03 08:49 | Outpatient (REF) | payer MEDICARE, SELFPAY ==
[2020-07-03 13:13] LABS: ALT 34 U/L (16-63); AST 25 U/L (15-37); Albumin 3.8 g/dL (3.4-5.0); Alkaline Phosphatase 66 U/L (46-116); Anion Gap 10.1 mmol/L (3-11); BUN 29 mg/dL (7-18); Bilirubin, Total 0.9 mg/dL (0.2-1.0); CO2 24.9 mmol/L (21.0-32.0); Calcium 9.2 mg/dL (8.5-10.1); Calculated LDL 62 mg/dL (<100); Chloride 106 mmol/L (98-107); Cholesterol 134 mg/dL (<200); Glucose 93 mg/dL (74-106); HDL Cholesterol 65 mg/dL (40-60); Potassium 4.5 mmol/L (3.5-5.1); Sodium 141 mmol/L (136-145); Triglyceride 39 mg/dL (<150)
[2020-07-03 13:15] LABS: Hemoglobin A1C 5.9 % (<5.7)
== END 2020-07-03 08:50 | disposition home or self-care (01) ==
LOC: NCHCN 08:49
PROVIDERS: PCP Internal Medicine; Visit Provider Internal Medicine
DX: R73.03 Prediabetes (principal); E66.3 Overweight
CPT/HCPCS: 80053; 80061; 83036

== ENCOUNTER → 2020-07-20 13:52 | Outpatient (BNVA) | payer MEDICARE, SELFPAY | PROVIDERS: PCP Internal Medicine; Referring Provider Internal Medicine; Visit Provider Internal Medicine Cardiovascular Disease | DX: I48.0 Paroxysmal atrial fibrillation (principal); Z79.01 Long term (current) use of anticoagulants; I25.10 Atherosclerotic heart disease of native coronary artery without angina pectoris; R01.1 Cardiac murmur, unspecified | CPT/HCPCS: 99204; 99214 ==

== ENCOUNTER 2020-10-05 01:20 | Outpatient (CLI) | payer MEDICARE, SELFPAY ==
--- NOTE | 2020-10-05 09:00 | ETT_ITS ---
APPROVED REPORT Exam: Exercise Treadmill Patient Location: Out-Patient Room/Bed: Stress Nurse: Richa Blair RN Ordering Provider:GRANT ROGERS, Contact Number: [phone] BMI: 27.43 Baseline Rhythm: Sinus Bradycardia Comment: 1st HB Indications: CAD Medical History Medical History: afib, GERD, SD (2010), CK, BERUMEN, CAD, murmur, preDM Cardiac Medications: Metoprolol succinate/ Toprol XL, atorvastatin, elequis, nitro Allergies: NKA Cardiac Risk Factors: family Hx, CVD, preDM Previous Cardiac Procedures: none Pretest Chest Pain Characteristics: none Exercise History: Physically active Physical Disabilities: none Lung Sounds: Clear to auscultation Heart Sounds: Murmur Stress Test Details Test: Exercise stress testing was performed using a Bro protocol. Rest Stress HR Resting HR Supine: 57 bpm Max Heart Rate (APMHR): 141 bpm Resting HR Standin bpm Target HR (85% APMHR): 119 bpm Max HR Achieved: 133 bpm % of APMHR: 94 Recovery HR: 71 bpm HR response to stress: Normal HR response to stress Comment: Metoprolol succinate not held. BP Resting BP Supine: 124/78 mmHg Resting BP Standin/74 mmHg Max BP: 178/70 mmHg Recovery BP: 130/78 mmHg BP response to stress: Normal blood pressure response to stress. ECG Resting ECG: Sinus Bradycardia, 1st DHB Ectopy: rare PVC Stress ECG: Sinus Tachycardia ST Change: No significant ST segment changes noted Arrhythmia: frequent multifocal PVCs Comment: T waves flipped in lead V6 at minute 5:30 of exercise Recovery ECG: Sinus Rhythm Recovery ST Change: No significant ST segment changes noted Recovery Arrhythmia: frequent multifocal PVCs, 3 beat run VTach x2, couplets, PAC Comment: Frequent PVCs at stop of exercise, decreased during recovery. T waves in lead 6 back to base line. Clinical Reason for Termination: Fatigue Stress Symptoms: General Fatigue Exercise duration: 11 min00 sec Highest Stage Reached: Stage 4: 4.2 mph at 16% grade. Exercise capacity: 13.46 METs Gonzalez Treadmill Score: 11 Rate Pressure Product: [id number] Stress ECG Conclusion 1. The patient exercised for 11 minutes (13 METS). Patient no symptoms suggestive of ischemia. Exer cise was stopped due to fatigue. 2. There is no evidence of ischemia on the ECG portion of the exam. The patient did have a few PVCs during recovery. 3. The patient showed good exercise tolerance and heart rate and blood pressure augmented appropriate ly. Gonzalez Treadmill Score is 11 which is Low risk. Stress Test Summary STAGE Time (mins) Speed (mph) Grade (%) HR BP SYMPTOMS METS Supine 57 124/78 Standing 64 126/74 1 3 1.7 10 86 130/74 SpO2 96 4.6 2 6 2.5 12 98 140/72 7 3 9 3.4 14 115 10.2 4 12 4.2 16 132 Spo2 90 12.9 1 min recovery 101 178/70 Spo2 96 3 min recovery 74 162/74 6 min recovery 71 130/78
== END 2020-10-05 01:40 ==
PROVIDERS: PCP Internal Medicine; Visit Provider Internal Medicine
DX: I25.10 Atherosclerotic heart disease of native coronary artery without angina pectoris (principal); R73.03 Prediabetes; Z82.49 Family history of ischemic heart disease and other diseases of the circulatory system; I48.91 Unspecified atrial fibrillation; I44.0 Atrioventricular block, first degree
CPT/HCPCS: 93016; 93018; 93017

== ENCOUNTER → 2020-11-17 11:13 | Outpatient (BNVA) | payer MEDICARE, SELFPAY | PROVIDERS: PCP Internal Medicine; Referring Provider Internal Medicine; Visit Provider Student in an Organized Health Care Education/Training Program | DX: M17.32 Unilateral post-traumatic osteoarthritis, left knee (principal) | CPT/HCPCS: 99213 ==

== ENCOUNTER → 2020-11-29 10:06 | Outpatient (BNVA) | payer MEDICARE, SELFPAY | PROVIDERS: PCP Internal Medicine; Referring Provider Family Medicine | DX: M17.32 Unilateral post-traumatic osteoarthritis, left knee (principal) | CPT/HCPCS: 20610; J1040 ==

== ENCOUNTER 2021-03-14 00:16 | Outpatient (CLI) | payer MEDICARE, SELFPAY ==
--- NOTE | 2021-03-14 14:04 | DI.US_ITS ---
APPROVED REPORT EXAM: Comprehensive 2D, Doppler, and color-flow Echocardiogram Patient Location: Out-Patient [place] Assistant: Joleen Villarreal RDCS (AE) Indications: Murmur, Atrial Fibrillation Other Information Study Quality: Adequate Conclusion Normal left ventricular wall thickness and chamber size. Estimated ejection fraction is 60 to 65%. There are no segmental wall motion abnormalities Normal right ventricular size and systolic function The right atrium is mildly dilated. The left atrium is normal in size The aortic valve is trileaflet and sclerotic without stenosis or regurgitation Mildly thickened mitral leaflets with mild regurgitation Normal tricuspid valve with mild regurgitation. Estimated right ventricular systolic pressure is nor mal at 25 mmHg Dilated ascending aorta measuring 4.03 cm Wall motion Left Ventricle The left ventricle is normal size. The left ventricular systolic function is normal. The left ventric ular ejection fraction is within the normal range. There is normal left ventricular wall thickness. T here is normal LV segmental wall motion. There is no ventricular septal defect visualized. LVEF is 60 -65%. Right Ventricle The right ventricle is normal size. The right ventricular systolic function is normal. The RVSP is 25 .3 mmHg. Atria The left atrium size is normal. Right atrium is mildly dilated. The interatrial septum is intact with no evidence for an atrial septal defect. Aortic Valve Aortic valve is calcified. The Aortic valve is sclerotic. Aortic valve is trileaflet. The aortic valv e is not well visualized. Aortic valve is calcified. The Aortic valve is sclerotic. Aortic valve is t hickened but has adequate excursion. Aortic valve is grossly normal in structure. Aortic valve is not well visualized. There is no aortic valvular stenosis. No aortic regurgitation is present. Mitral Valve Mitral valve leaflets are mildly thickened. No evidence of mitral valve stenosis. Mild mitral regurgi tation. Tricuspid Valve The tricuspid valve is normal in structure. There is no tricuspid valve stenosis. Mild tricuspid regu rgitation. Pulmonic Valve The pulmonary valve is normal in structure. There is no pulmonic valvular stenosis. There is no pulmo dontae valvular regurgitation. Great Vessels The aortic root is normal in size. The ascending aorta is moderately dilated. Aortic arch is not well visualized. IVC is normal in size and collapses >50% with inspiration. Pericardium There is no pericardial effusion. 2D Dimensions IVSD d PLAX 1.04 cm M: 0.6-1.2 LV Vol A2C d MOD 113.7 mL LVPW d PLAX 1.02 cm M: 0.6 - 1.2 LV Vol A4C d MOD 100.3 mL LVID d PLAX 4.49 cm M: 4.2 - 5.8 LA vol/ BSA A2C s A-L 22.2 mL/m2 LVDs 3.10 cm M: 2.5 - 4.0 LA vol/ BSA A4C s A-L 18.1 mL/m2 Ao Root d 3.15 cm M: 3.1 - 3.7 LA Vol/ BSA Biplane s A-L 21.4 mL/m2 RA Area A4C 19.49 cm2 LA Area A4C s MOD 16.33 cm2 RA Vol/ BSA A4C s A-L 26.4 mL/m2 LA Area A2C s MOD 16.98 cm2 Ao Asc Diam d 4.03 cm M: 2.6 - 3.4 LV EF A4C MOD 64.1 % LV EF Teichholz 58.2 % LV EF A2C MOD 60.2 % LVEF (Coyne's) 62.48 % M: 52 - 72 LV EF Biplane MOD 62.5 % LV Volume 78.65 mL M: 62 - 150 SV 67.45 mL LV Volume Index 36.07 mL/m2 M: 34 - 74 SV Index 30.83 mL/m2 LV Vol Biplane MOD 108.0 mL FS 30.50 % M-Mode TAPSE 2.96 cm (M/F) >1.7 LV Diastology MV E' medial 0.039 (>0.07 m/s) E/A Ratio 0.7 LV E/e MED 12.40 (<14) MV E Vmax 0.49 (0.4-1.3 m/s) MV E' lateral 0.086 (>0.1 m/s) MV A Vmax 0.70 (0.4-1.3 m/s) LV E/e LAT 5.60 (<14) MV E/A Ratio 0.65 MV E/E' medial 12.42 MV E/E' lateral 5.64 Aortic Valve LVOT Area 4.00 cm2 AoV Area Vmax 3.26 cm2 LVOT Vmax 1.34 m/s AoV Area/ BSA (Vmax) 1.49 cm2/m2 LVOT Mean Juancarlos. 1.03 m/s MEAGHAN Mean Juancarlos. 3.73 cm2 LVOT Peak Grad 7.2 mmHg MEAGHAN Mean Juancarlos. Index 1.70 cm2/m2 LVOT Mean Grad 4.6 mmHg LVOT VTI 0.264 m LVOT Diam s 2.25 cm AoV Vmax 1.64 m/s Velocity Ratio 0.81 AoV Mean Juancarlos. 1.10 m/s AoV Peak Grad 10.8 mmHg LVOT SV 105.43 mL AoV Mean Grad 5.4 mmHg AoV VTI 0.324 m AoV Area VTI 3.25 cm2 AoV Area/ BSA (VTI) 1.49 cm/m2 Mitral Valve MV DT 408 (160-240 msec) MV PHT 118 msec MV Area PHT 1.86 cm2 Pulmonary Valve PV Vmax 1.16 (0.5-1.5 m/s) RVOT Peak Gr. 2.03 mmHg PV Peak Grad 5.4 mmHg RVOT Mean Gr. 1.00 mmHg PV Mean Grad 2.8 mmHg RVOT VTI 0.158 m PV VTI 0.215 m RVOT Vmax 0.71 m/s Tricuspid Valve TR Peak Grad 22.3 mmHg TR Vmax 2.36 m/s RA Pressure 3.00 mmHg RVSP (TR) 25.3 mmHg
== END 2021-03-14 00:36 ==
PROVIDERS: PCP Family Medicine; Visit Provider Internal Medicine Cardiovascular Disease
DX: I48.91 Unspecified atrial fibrillation (principal); R01.1 Cardiac murmur, unspecified; I08.1 Rheumatic disorders of both mitral and tricuspid valves; I77.810 Thoracic aortic ectasia
CPT/HCPCS: 93306

== ENCOUNTER → 2021-03-20 13:08 | Outpatient (BNVA) | payer MEDICARE, SELFPAY | PROVIDERS: PCP Family Medicine; Referring Provider Family Medicine; Visit Provider Internal Medicine Cardiovascular Disease | DX: I48.0 Paroxysmal atrial fibrillation (principal); I25.10 Atherosclerotic heart disease of native coronary artery without angina pectoris; Z79.01 Long term (current) use of anticoagulants | CPT/HCPCS: 99214; 99213 ==

== ENCOUNTER 2021-08-07 08:30 | Outpatient (REF) | payer MEDICARE, SELFPAY ==
[2021-08-07 16:50] LABS: HCT 49.6 % (40.0-50.0); HGB 16.2 g/dL (13.5-17.5); MCH 28.3 pg (27.0-33.0); MCHC 32.7 % (32.0-36.0); MCV 86.6 fL (80-95); MPV 8.8 fL (8.0-11.0); Platelet Count 250 10^3/uL (130-400); RBC 5.73 10^6/uL (4.36-5.78); RDW 13.9 % (11.8-14.1); RDW-SD 43.9 fL; WBC 5.75 10^3/uL (4.4-10.8)
[2021-08-07 17:25] LABS: Anion Gap 9.8 mmol/L (3-11); BUN 29 mg/dL (7-18); CO2 25.2 mmol/L (21.0-32.0); Calcium 8.7 mg/dL (8.5-10.1); Calculated LDL 67 mg/dL (<100); Chloride 106 mmol/L (98-107); Cholesterol 132 mg/dL (<200); Glucose 99 mg/dL (74-106); HDL Cholesterol 56 mg/dL (40-60); Potassium 4.5 mmol/L (3.5-5.1); Sodium 141 mmol/L (136-145); Triglyceride 45 mg/dL (<150)
== END 2021-08-07 08:31 | disposition home or self-care (01) ==
LOC: NCHCN 08:30
PROVIDERS: PCP Family Medicine; Visit Provider Family Medicine
DX: I25.10 Atherosclerotic heart disease of native coronary artery without angina pectoris (principal); R73.03 Prediabetes; I48.0 Paroxysmal atrial fibrillation
CPT/HCPCS: 80048; 80061; 85027

== ENCOUNTER → 2021-12-17 13:43 | Outpatient (BNVA) | payer MEDICARE, SELFPAY | PROVIDERS: PCP Family Medicine; Visit Provider Internal Medicine Cardiovascular Disease | DX: I48.20 Chronic atrial fibrillation, unspecified (principal); Z79.01 Long term (current) use of anticoagulants; I25.10 Atherosclerotic heart disease of native coronary artery without angina pectoris | CPT/HCPCS: 99214 ==

== ENCOUNTER → 2022-02-01 00:23 | Outpatient (CLI) | payer MEDICARE, SELFPAY ==
--- NOTE | 2022-02-01 11:00 | DI.RAD_ITS ---
Exam(s) XR HIP LT COMPLETE AP PELVIS EXAM: XR HIP LT COMPLETE AP PELVIS CLINICAL HISTORY: LT HIP JOINT PAIN, M25.552. TECHNIQUE: 2D digital imaging was performed. COMPARISON: CR LEFT HIP COMPLETE from 10/24/2011 FINDINGS: 3 views No evidence of pelvic nor hip fracture. No hip joint space narrowing as seen on the additional left hip views. There is asymmetric narrowing of the right side of the disc space at L4-5 level evident. IMPRESSION: As above. DATA REPOSITORY: RADIATION DOSE DELIVERED:
== END ==
PROVIDERS: PCP Family Medicine; Visit Provider Family Medicine
DX: M25.552 Pain in left hip (principal)
CPT/HCPCS: 73502

== ENCOUNTER 2022-02-13 10:42 | Outpatient (REF) | payer MEDICARE, SELFPAY ==
[2022-02-13 15:29] LABS: Hemoglobin A1C 6.3 % (<5.7)
[2022-02-13 23:08] LABS: PSA, Screening 1.2 ng/mL (<=6.5)
== END 2022-02-13 10:43 | disposition home or self-care (01) ==
LOC: NCHCN 10:42
PROVIDERS: PCP Family Medicine; Visit Provider Family Medicine
DX: R73.03 Prediabetes (principal); N40.0 Benign prostatic hyperplasia without lower urinary tract symptoms; I48.0 Paroxysmal atrial fibrillation; M25.552 Pain in left hip; Z12.5 Encounter for screening for malignant neoplasm of prostate
CPT/HCPCS: 84153; 83036

== ENCOUNTER 2022-09-11 13:13 | Outpatient (REF) | payer MEDICARE, SELFPAY ==
[2022-09-11 15:56] LABS: Abs Immature Grans 0.02 10^3/uL (0.0-0.06); Absolute Basophil Count 0.02 10^3/uL (0.0-0.2); Absolute Eosinophil Count 0.21 10^3/uL (0.0-0.7); Absolute Lymphocyte Count 1.31 10^3/uL (1.2-3.4); Absolute Monocyte Count 0.53 10^3/uL (0.1-0.8); Absolute Neutrophil Count 3.03 10^3/uL (1.2-6.7); Basophils % 0.4; Eosinophils % 4.1; HCT 49.6 % (40.0-50.0); HGB 16.8 g/dL (13.5-17.5); Immature Grans % 0.4; Lymphocytes % 25.6; MCH 29.6 pg (27.0-33.0); MCHC 33.9 % (32.0-36.0); MCV 87 fL (80-95); MPV 9.9 fL (8.0-11.0); Monocytes % 10.4; Neutrophils % 59.1; Platelet Count 181 10^3/uL (130-400); RBC 5.68 10^6/uL (4.36-5.78); RDW 13.7 % (11.8-14.1); RDW-SD 43.9 fL; WBC 5.12 10^3/uL (4.4-10.8)
[2022-09-11 16:37] LABS: ALT 32 U/L (16-63); AST 19 U/L (15-37); Albumin 3.8 g/dL (3.4-5.0); Alkaline Phosphatase 77 U/L (46-116); Anion Gap 8.9 mmol/L (3-11); BUN 30 mg/dL (7-18); Bilirubin, Total 0.7 mg/dL (0.2-1.0); CO2 24.1 mmol/L (21.0-32.0); Calcium 9.2 mg/dL (8.5-10.1); Chloride 106 mmol/L (98-107); Estimated GFR 75.61 (mL/min/1.73m2); Folate 16.2 ng/mL (8.6-20.0); Glucose 101 mg/dL (74-106); Potassium 4.7 mmol/L (3.5-5.1); Sodium 139 mmol/L (136-145); TSH (W/Ref FT4) 0.89 uIU/mL (0.36-3.74); Total Protein 7.1 g/dL (6.4-8.2); Vitamin B12 479 pg/mL (193-986)
[2022-09-11 17:45] LABS: Hemoglobin A1C 6.3 % (<5.7)
[2022-09-12 18:15] LABS: PSA, Screening 0.7 ng/mL (<=6.5)
== END 2022-09-11 13:14 | disposition home or self-care (01) ==
LOC: NCHCN 13:13
PROVIDERS: PCP Family Medicine; Visit Provider Family Medicine
DX: R73.03 Prediabetes (principal); I48.0 Paroxysmal atrial fibrillation; N40.0 Benign prostatic hyperplasia without lower urinary tract symptoms; Z79.899 Other long term (current) drug therapy; Z12.5 Encounter for screening for malignant neoplasm of prostate
CPT/HCPCS: 80053; 84153; 82607; 82746; 83036; 84443; 85025

== ENCOUNTER 2022-09-27 00:47 | Outpatient (CLI) | payer MEDICARE, SELFPAY ==
--- NOTE | 2022-09-27 | DI.CT_ITS ---
Exam(s) CT CHEST WO EXAM: CT CHEST WO CLINICAL HISTORY: LUNG NODULE R91.8 TECHNIQUE: Imaging Protocol: Axial computed tomography images with coronal and sagittal reformatted images were created and reviewed CONTRAST MATERIAL: Noncontrast COMPARISON: CR CHEST 2 VIEWS PA,LAT from 07/21/[address] HEAD CERVICAL SPINE WO from 08/09/[address] CHEST W from 05/05/2019 FINDINGS: Pulmonary parenchyma: No consolidation. Stable 7 millimeter nodule in the medial right upper lobe sin ce 2019. No new nodules. Tracheobronchial tree: No bronchiectasis or mucous plugging. Mediastinum and Linda: No dominant adenopathy or fluid collection. Pleura: No effusion or pneumothorax. Heart: The heart is not dilated. [id number]-da-nrxhswug coronary artery calcifications are seen. Aorta: Thoracic aorta non-dilated. Tortuous. Mild atherosclerotic changes. Upper abdomen: Bilateral renal cysts. Bones: Degenerative changes. No compression fractures. Soft tissues: Unremarkable. IMPRESSION: Stable 7 millimeter nodule medial right upper lobe since 2019. No further follow-up recommended. No new findings. RADIATION DOSE DELIVERED: 616.4mGy.cm Total DLP DATA REPOSITORY: All CT scans at this facility are submitted to the National Radiology Data Registry (NRDR) Dose Index Registry (DIR) with the [employer] (ACR). RADIATION OPTIMIZATION: All CT scans at this facility use at least one of these dose optimization te chniques: automated exposure control; mA and/or kV adjustment per patient size (includes targeted exa ms where dose is matched to clinical indication); or iterative reconstruction.
== END 2022-09-27 01:07 ==
LOC: DI 00:47
PROVIDERS: PCP Family Medicine; Visit Provider Family Medicine
DX: R91.8 Other nonspecific abnormal finding of lung field (principal)
CPT/HCPCS: 71250

== ENCOUNTER → 2022-11-21 11:03 | Outpatient (BNVA) | payer MEDICARE, SELFPAY | PROVIDERS: PCP Family Medicine; Referring Provider Family Medicine; Visit Provider Nurse Practitioner Gerontology | DX: N40.2 Nodular prostate without lower urinary tract symptoms (principal); N32.81 Overactive bladder | CPT/HCPCS: 99215 ==

== ENCOUNTER 2022-12-17 08:23 | Outpatient (CLI) | payer MEDICARE, SELFPAY ==
--- NOTE | 2022-12-17 08:15 | RT.EKG_ITS ---
APPROVED REPORT Exam: Resting ECG Reason for Exam: paroxysmal afib Patient Location: O HR:72 bpm ECG Measurements Heart Rate 72 AXIS AR 273 P 37 QRSd 105 QRS -60 QT 387 T 31 QTc 424 Conclusion Sinus rhythm...normal P axis, V-rate 50- 99 Prolonged AR interval...AR >220, V-rate 50- 90 Probable left atrial enlargement...P >50mS, <-0.10mV V1 LAD, consider left anterior fascicular block...axis(240,-40), S>R II III aVF RSR' in V1 or V2, probably normal variant...small R' only
== END 2022-12-17 08:24 | disposition home or self-care (01) ==
LOC: DI.CARD 08:24
PROVIDERS: PCP Family Medicine; Visit Provider Internal Medicine Cardiovascular Disease
DX: I25.10 Atherosclerotic heart disease of native coronary artery without angina pectoris (principal); I48.91 Unspecified atrial fibrillation
CPT/HCPCS: 93010

== ENCOUNTER → 2022-12-17 13:45 | Outpatient (BNVA) | payer MEDICARE, SELFPAY | PROVIDERS: PCP Family Medicine; Visit Provider Internal Medicine Cardiovascular Disease | DX: Z79.01 Long term (current) use of anticoagulants (principal); Z82.49 Family history of ischemic heart disease and other diseases of the circulatory system; I25.10 Atherosclerotic heart disease of native coronary artery without angina pectoris; I48.91 Unspecified atrial fibrillation | CPT/HCPCS: 93005; 99214 ==

== ENCOUNTER → 2023-01-03 00:34 | Outpatient (CLI) | payer MEDICARE, SELFPAY ==
--- NOTE | 2023-01-03 06:45 | DI.US_ITS ---
Exam(s) US AAA SCREENING EXAM: US AAA SCREENING CLINICAL HISTORY: Family history of AAA,screening for aaa,cad,i25.10 COMPARISON: US AAA SCREENING from 08/18/[address] RENAL COLIC WO from 12/01/2019 FINDINGS: Abdominal Aorta: Proximal: 2.3 x 2.3 cm Mid: 2.7 x 3.2 cm Distal: 2.3 x 2.6 cm Iliac's: Right: 0.9 x 1.5 cm Left: 1.5 x 1.2 cm Atherosclerosis is present. 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 DATA REPOSITORY:
== END ==
PROVIDERS: PCP Family Medicine; Visit Provider Internal Medicine Cardiovascular Disease
DX: I25.10 Atherosclerotic heart disease of native coronary artery without angina pectoris (principal); Z82.49 Family history of ischemic heart disease and other diseases of the circulatory system; Z13.6 Encounter for screening for cardiovascular disorders
CPT/HCPCS: 76706

== ENCOUNTER → 2023-05-28 11:32 | Outpatient (BNVA) | payer MEDICARE, SELFPAY | PROVIDERS: PCP Family Medicine; Referring Provider Family Medicine; Visit Provider Nurse Practitioner Gerontology | DX: N32.81 Overactive bladder (principal); N40.2 Nodular prostate without lower urinary tract symptoms | CPT/HCPCS: 51798; 99213 ==

== ENCOUNTER 2023-08-25 15:44 | Outpatient (REF) | payer MEDICARE, SELFPAY ==
[2023-08-25 14:42] LABS: Abs Immature Grans 0.03 10^3/uL (0.0-0.06); Absolute Basophil Count 0.04 10^3/uL (0.0-0.2); Absolute Eosinophil Count 0.27 10^3/uL (0.0-0.7); Absolute Lymphocyte Count 1.09 10^3/uL (1.2-3.4); Absolute Monocyte Count 0.82 10^3/uL (0.1-0.8); Absolute Neutrophil Count 4.73 10^3/uL (1.2-6.7); Basophils % 0.6; Eosinophils % 3.9; HCT 47.5 % (40.0-50.0); HGB 15.6 g/dL (13.5-17.5); Immature Grans % 0.4; Lymphocytes % 15.6; MCH 28.8 pg (27.0-33.0); MCHC 32.8 % (32.0-36.0); MCV 88 fL (80-95); MPV 8.6 fL (8.0-11.0); Monocytes % 11.7; Neutrophils % 67.8; Platelet Count 194 10^3/uL (130-400); RBC 5.41 10^6/uL (4.36-5.78); RDW 14.4 % (11.8-14.1); RDW-SD 45.8 fL; WBC 6.98 10^3/uL (4.4-10.8)
[2023-08-25 14:50] LABS: Uric Acid 5.1 mg/dL (3.5-7.2)
[2023-08-25 21:40] LABS: CRP, High Sensitivity >15.00 mg/L (See Note)
== END 2023-08-25 15:45 | disposition home or self-care (01) ==
LOC: NCHCN 15:44
PROVIDERS: PCP Family Medicine; Visit Provider Physician Assistant
DX: M25.532 Pain in left wrist (principal)
CPT/HCPCS: 86141; 84550; 85025

== ENCOUNTER → 2023-08-25 21:18 | Outpatient (CLI) | payer MEDICARE, SELFPAY ==
--- NOTE | 2023-08-25 13:33 | DI.RAD_ITS ---
Exam(s) XR WRIST LT COMPLETE EXAM: XR WRIST LT COMPLETE CLINICAL HISTORY: M25.532 Pain left wrist. TECHNIQUE: 2D digital imaging was performed. COMPARISON: No exams were available for comparison FINDINGS: 3 views No evidence of acute fracture nor dislocation nor significant ulnar variance. Scaphoid and scapholun ate distance appear unremarkable. There are degenerative changes in the triscaphe joint. More sever e advanced degenerative changes are noted at the 1st carpometacarpal joint. IMPRESSION: Severe degenerative changes at the 1st carpometacarpal joint. Moderate degenerative changes at the t riscaphe joint. No fractures. DATA REPOSITORY: RADIATION DOSE DELIVERED:
== END ==
PROVIDERS: PCP Family Medicine; Visit Provider Physician Assistant
DX: M19.032 Primary osteoarthritis, left wrist (principal)
CPT/HCPCS: 73110

== ENCOUNTER 2023-10-06 09:35 | Outpatient (REF) | payer MEDICARE, SELFPAY ==
[2023-10-06 15:03] LABS: HCT 48.2 % (40.0-50.0); HGB 15.9 g/dL (13.5-17.5); MCV 88 fL (80-95); MPV 9.1 fL (8.0-11.0); Platelet Count 179 10^3/uL (130-400); RBC 5.48 10^6/uL (4.36-5.78); RDW 14.6 % (11.8-14.1); RDW-SD 46.6 fL; WBC 4.63 10^3/uL (4.4-10.8)
[2023-10-06 15:19] LABS: ALT 26 U/L (16-63); AST 22 U/L (15-37); Albumin 3.8 g/dL (3.4-5.0); Alkaline Phosphatase 84 U/L (46-116); Anion Gap 10.1 mmol/L (3-11); BUN 31 mg/dL (7-18); Bilirubin, Total 1.2 mg/dL (0.2-1.0); CO2 24.9 mmol/L (21.0-32.0); Calcium 9.2 mg/dL (8.5-10.1); Calculated LDL 56 mg/dL (<100); Chloride 105 mmol/L (98-107); Cholesterol 119 mg/dL (<200); Estimated GFR 75.14 (mL/min/1.73m2); Glucose 96 mg/dL (74-106); HDL Cholesterol 54 mg/dL (40-60); Potassium 4.4 mmol/L (3.5-5.1); Sodium 140 mmol/L (136-145); Total Protein 6.9 g/dL (6.4-8.2); Triglyceride 48 mg/dL (<150)
[2023-10-06 15:26] LABS: Hemoglobin A1C 6.2 % (<5.7)
[2023-10-06 22:20] LABS: PSA, Screening 0.9 ng/mL (<=6.5)
[2023-10-07 11:05] LABS: Lyme Ab w Rflx to Lyme Confirm Negative (Negative)
[2023-10-08 19:37] LABS: Anaplasma phagocytophilum Negative (Negative); B. miyamotoi PCR Negative (Negative); Babesia divergens/MO-1 Negative (Negative); Babesia duncani Negative (Negative); Babesia microti Negative (Negative); Ehrlichia chaffeensis Negative (Negative); Ehrlichia ewingii/canis Negative (Negative); Ehrlichia muris eauclairensis Negative (Negative)
== END 2023-10-06 09:36 | disposition home or self-care (01) ==
LOC: NCHCN 09:35
PROVIDERS: PCP Family Medicine; Visit Provider Family Medicine
DX: I25.10 Atherosclerotic heart disease of native coronary artery without angina pectoris (principal); R73.03 Prediabetes; M25.59 Pain in other specified joint; N40.1 Benign prostatic hyperplasia with lower urinary tract symptoms; Z12.5 Encounter for screening for malignant neoplasm of prostate
CPT/HCPCS: 80053; 80061; 84153; 85027; 87798; 83036; 86618

== ENCOUNTER → 2023-12-23 14:10 | Outpatient (BNVA) | payer MEDICARE, SELFPAY | PROVIDERS: PCP Family Medicine; Visit Provider Internal Medicine Cardiovascular Disease | DX: I25.10 Atherosclerotic heart disease of native coronary artery without angina pectoris (principal) | CPT/HCPCS: 99213 ==

== ENCOUNTER 2023-12-24 15:59 | Outpatient (REF) | payer MEDICARE, SELFPAY ==
--- NOTE | 2023-12-24 14:30 | SKI_PTH ---
PATIENT: Frankie Rodriguez LOC: LOCATED WITHIN [facility]#:[id number] AGE/SX: 83/M ROOM: RE12/24/[address]: Carlos [address] : 1940 BED: DIS: 12/24/2023 SPEC #: [id number] RECD: 12/25/23 12:45 STATUS: PAULETTE REQ #: [id number] MILAGROS: 12/24/23 14:[address]: Carlos Lane DEPT: Surgical Specimen RECD BY: Verna Muñoz Tissues: 1 - SKIN BIOPSY(SHAVE/PUNCH) Procedures: SKIN LEVEL 4 Comments: [id number]
== END 2023-12-24 16:00 | disposition home or self-care (01) ==
LOC: NCHCN 15:59
PROVIDERS: PCP Family Medicine; Visit Provider Family Medicine
DX: C44.519 Basal cell carcinoma of skin of other part of trunk (principal)
CPT/HCPCS: 88305

== ENCOUNTER 2024-07-19 15:15 | Outpatient (REF) | payer MEDICARE, SELFPAY ==
[2024-07-19 21:25] LABS: Abs Immature Grans 0.03 10^3/uL (0.0-0.06); Absolute Basophil Count 0.03 10^3/uL (0.0-0.2); Absolute Eosinophil Count 0.27 10^3/uL (0.0-0.7); Absolute Lymphocyte Count 1.28 10^3/uL (1.2-3.4); Absolute Monocyte Count 0.69 10^3/uL (0.1-0.8); Absolute Neutrophil Count 4.36 10^3/uL (1.2-6.7); Basophils % 0.5 %; Eosinophils % 4.1 %; HCT 50.1 % (40.0-50.0); HGB 16.6 g/dL (13.5-17.5); Immature Grans % 0.5 %; Lymphocytes % 19.2 %; MCH 29.5 pg (27.0-33.0); MCHC 33.1 % (32.0-36.0); MCV 89 fL (80-95); MPV 9.3 fL (8.0-11.0); Monocytes % 10.4 %; Neutrophils % 65.3 %; Platelet Count 198 10^3/uL (130-400); RBC 5.63 10^6/uL (4.36-5.78); RDW 14.4 % (11.8-14.1); RDW-SD 46.4 fL; WBC 6.66 10^3/uL (4.4-10.8)
[2024-07-19 21:33] LABS: C-Reactive Protein 2.54 mg/dL (<or=0.5)
[2024-07-19 21:40] LABS: ESR 34 mm/hr (0-20)
[2024-07-21 11:54] LABS: Lyme Ab w Rflx to Lyme Confirm Negative (Negative)
[2024-07-22 23:58] LABS: Anaplasma phagocytophilum Negative (Negative); B. miyamotoi PCR Negative (Negative); Babesia divergens/MO-1 Negative (Negative); Babesia duncani Negative (Negative); Babesia microti Negative (Negative); Ehrlichia chaffeensis Negative (Negative); Ehrlichia ewingii/canis Negative (Negative); Ehrlichia muris eauclairensis Negative (Negative)
== END 2024-07-19 15:16 | disposition home or self-care (01) ==
LOC: NCHCN 15:15
PROVIDERS: PCP Family Medicine; Visit Provider Nurse Practitioner Family
DX: M25.562 Pain in left knee (principal)
CPT/HCPCS: 85652; 87798; 85025; 86140; 86618

== ENCOUNTER 2024-07-20 00:53 | Outpatient (CLI) | payer MEDICARE, SELFPAY ==
--- NOTE | 2024-07-20 | DI.US_ITS ---
Exam(s) US LOWER EXTREMITY VENOUS LT EXAM: US LOWER EXTREMITY VENOUS LT CLINICAL HISTORY: LT CALF PAIN,M79.662,BEHIND KNEE TECHNIQUE: Grayscale, color, and doppler imaging of the deep venous system of the LEFT lower extremi ty was performed. COMPARISON: NONE FINDINGS: There is no evidence of intraluminal thrombus and there is normal compression and augmentation demons trated within the common femoral vein, femoral vein, and popliteal vein. In the ipsilateral calf the interrogated veins also exhibit normal compression/ augmentation properti es. The ipsilateral saphenofemoral junction is patent. IMPRESSION: 1. No evidence of DVT in the LEFT lower extremity. DATA REPOSITORY:
== END 2024-07-20 01:13 ==
PROVIDERS: PCP Family Medicine; Visit Provider Nurse Practitioner Family
DX: M79.662 Pain in left lower leg (principal)
CPT/HCPCS: 93971

== ENCOUNTER → 2024-07-26 14:00 | Outpatient (BNVA) | payer MEDICARE, SELFPAY | PROVIDERS: PCP Family Medicine; Visit Provider Nurse Practitioner Gerontology | DX: N40.2 Nodular prostate without lower urinary tract symptoms (principal); N32.81 Overactive bladder; R39.9 Unspecified symptoms and signs involving the genitourinary system | CPT/HCPCS: 51798; 99213 ==

== ENCOUNTER → 2024-08-19 09:26 | Outpatient (BNVA) | payer MEDICARE, SELFPAY | PROVIDERS: PCP Family Medicine; Referring Provider Family Medicine | DX: M25.462 Effusion, left knee (principal); M17.12 Unilateral primary osteoarthritis, left knee | CPT/HCPCS: 99213 ==

== ENCOUNTER 2024-09-30 09:44 | Outpatient (REF) | payer MEDICARE, SELFPAY ==
[2024-09-30 15:56] LABS: HCT 47.9 % (40.0-50.0); HGB 15.9 g/dL (13.5-17.5); MCH 29.1 pg (27.0-33.0); MCHC 33.2 % (32.0-36.0); MCV 88 fL (80-95); MPV 9.1 fL (8.0-11.0); Platelet Count 192 10^3/uL (130-400); RBC 5.46 10^6/uL (4.36-5.78); RDW 14.5 % (11.8-14.1); RDW-SD 46.4 fL; WBC 5.93 10^3/uL (4.4-10.8)
[2024-09-30 16:29] LABS: ALT 23 U/L (16-63); AST 21 U/L (15-37); Albumin 3.9 g/dL (3.4-5.0); Alkaline Phosphatase 92 U/L (46-116); Anion Gap 9.8 mmol/L (3-11); BUN 30 mg/dL (7-18); Bilirubin, Total 1.1 mg/dL (0.2-1.0); CO2 25.2 mmol/L (21.0-32.0); CREATININE 1.2 mg/dL (0.70-1.30); Calcium 9.3 mg/dL (8.5-10.1); Calculated LDL 58 mg/dL (<100); Chloride 103 mmol/L (98-107); Cholesterol 122 mg/dL (<200); Glucose 102 mg/dL (74-106); HDL Cholesterol 57 mg/dL (>or=40); Potassium 4.8 mmol/L (3.5-5.1); Sodium 138 mmol/L (136-145); Total Protein 7.1 g/dL (6.4-8.2); Triglyceride 36 mg/dL (<150)
== END 2024-09-30 09:45 | disposition home or self-care (01) ==
LOC: NCHCN 09:44
PROVIDERS: PCP Family Medicine; Visit Provider Family Medicine
DX: I25.10 Atherosclerotic heart disease of native coronary artery without angina pectoris (principal); R73.03 Prediabetes
CPT/HCPCS: 80053; 80061; 85027; 83036

== ENCOUNTER 2024-10-19 02:27 | Outpatient (CLI) | payer MEDICARE, SELFPAY ==
--- NOTE | 2024-10-19 | DI.RAD_ITS ---
Exam(s) XR LUMBAR SPINE COMPLETE EXAM: XR LUMBAR SPINE COMPLETE CLINICAL HISTORY: LEG PAIN BILATERAL , M79.604, M79.605, CONCERNED ABOUT SPINAL STENOSIS. TECHNIQUE: 2D digital imaging was performed of the lumbar spine. Five images were obtained. AP, lateral, right oblique, left oblique and L5-S1 spot views were obtained. COMPARISON: CR LUMBAR SPINE COMPLETE from 10/24/2011 CR THORACO LUMBAR SPINE AP LAT from 01/02/2012 FINDINGS: BONES: No fracture or destructive lesion. There is an old compression of the L3 vertebra. There are endplate osteophytes at multiple levels of the lumbar spine. Degenerative changes of the facets are seen at multiple levels of the lumbar spine. DISKS: There is disc space narrowing at L1-L2, L2-L3 and L3-L4. ALIGNMENT: Lumbar spinal alignment is within normal limits. No spondylolysis or spondylolisthesis. SOFT TISSUE: Atherosclerotic calcification is present. IMPRESSION: 1. There are moderate degenerative changes seen throughout the lumbar spine. 2. Old L3 compression deformity. 3. If there are concerns for radicular symptoms, MRI should be considered for further evaluation. DATA REPOSITORY: RADIATION DOSE DELIVERED:
== END 2024-10-19 02:47 ==
LOC: DI 02:27
PROVIDERS: PCP Family Medicine; Visit Provider Family Medicine
DX: M51.362 Other intervertebral disc degeneration, lumbar region with discogenic back pain and lower extremity pain (principal)
CPT/HCPCS: 72110

== ENCOUNTER → 2024-11-01 11:33 | Outpatient (BNVA) | payer MEDICARE, SELFPAY | PROVIDERS: PCP Family Medicine; Referring Provider Family Medicine; Visit Provider Surgery | DX: I73.9 Peripheral vascular disease, unspecified (principal) | CPT/HCPCS: 93922 ==

== ENCOUNTER 2024-12-31 09:42 | Outpatient (CLI) | payer MEDICARE, SELFPAY ==
--- NOTE | 2024-12-31 09:30 | RT.EKG_ITS ---
APPROVED REPORT Exam: Resting ECG Reason for Exam: Afib Patient Location: O HR:63 bpm ECG Measurements Heart Rate 63 AXIS HI 319 P -13 QRSd 94 QRS -39 QT 402 T 53 QTc 412 Conclusion Sinus rhythm...normal P axis, V-rate 50- 99 Prolonged HI interval...HI >220, V-rate 50- 90 Left anterior fascicular block Late transition
== END 2024-12-31 09:43 | disposition home or self-care (01) ==
LOC: DI.CARD 09:43
PROVIDERS: PCP Family Medicine; Referring Provider Family Medicine; Visit Provider Internal Medicine Cardiovascular Disease
DX: I48.0 Paroxysmal atrial fibrillation (principal); I44.4 Left anterior fascicular block
CPT/HCPCS: 93010

== ENCOUNTER → 2024-12-31 09:42 | Outpatient (BNVA) | payer MEDICARE, SELFPAY | PROVIDERS: PCP Family Medicine; Referring Provider Family Medicine; Visit Provider Internal Medicine Cardiovascular Disease | DX: I25.10 Atherosclerotic heart disease of native coronary artery without angina pectoris (principal); I48.0 Paroxysmal atrial fibrillation; Z79.01 Long term (current) use of anticoagulants | CPT/HCPCS: 99213; 93005 ==